=== PATIENT | female | born 1995 | race African-American/Black ===

== ENCOUNTER 2023-05-17 10:47 | Emergency (ER) | payer MEDICAID ==
[~2023-05-17] VITALS: Ht 162.6 cm; Wt 72.0 kg
[2023-05-17 10:54] VITALS: BP 114/64; PULSE 109; RESP 20; TEMP 98.5; O2SAT 100
[2023-05-17] MEDS ORDERED: CYCL10TA21 MT (12:15)
[2023-05-17] MEDS ORDERED: LIDOCAINE 5% PATCH TOP SCH (12:15)
[2023-05-17] MEDS ORDERED: LIDO700A15 TP (12:15)
[2023-05-17] MEDS ORDERED: NAPR-1129 MT (12:15)
[2023-05-17] MEDS ORDERED: KETOROLAC 60MG/2ML VIAL IM ONE (12:15)
== END 2023-05-17 12:44 | disposition home or self-care (01) ==
LOC: ER 10:47
DX: S09.90XA Unspecified injury of head, initial encounter (principal); G89.11 Acute pain due to trauma; W18.39XA Other fall on same level, initial encounter; Y93.89 Activity, other specified; Y92.89 Other specified places as the place of occurrence of the external cause; Y99.8 Other external cause status
CPT/HCPCS: 81025; 99283; J1885; Z7610; 99282